=== PATIENT | female | born 1985 | race Caucasian/White ===

== ENCOUNTER 2017-10-19 11:01 | Outpatient (CLI) | payer OTHER ==
[~2017-10-19 11:01] MED LIST: FERR325C PO
[2017-10-19 12:07] LABS: BASOPHILS % (AUTO) 0.5 % (0-1); EOSINOPHILS # (AUTO) 0.2 X10'3 (0-0.9); EOSINOPHILS % (AUTO) 2.3 % (0-6); HEMATOCRIT 28.8 % (35.0-45.0); HEMOGLOBIN 9.4 g/dl (12.0-16.0); LYMPHOCYTES # (AUTO) 1.9 X10'3 (1.1-4.8); LYMPHOCYTES % (AUTO) 25.7 % (21-51); MEAN CORPUSCULAR HEMOGLOBIN 23.1 PG (27.0-31.0); MEAN CORPUSCULAR HGB CONC 32.6 % (33.0-36.5); MEAN PLATELET VOLUME 7.8 FL (7.4-10.4); MONOCYTES # (AUTO) 0.4 X10'3 (0-0.9); MONOCYTES % (AUTO) 5.8 % (2-12); NEUTROPHILS # (AUTO) 4.9 X10'3 (1.8-7.7); NEUTROPHILS % (AUTO) 65.7 % (42-75); PLATELET COUNT 323 X10'3 (140-440); RED BLOOD COUNT 4.05 X10'6 (4.20-5.60); RED CELL DISTRIBUTION WIDTH 15.7 % (11.5-14.5); WHITE BLOOD COUNT 7.5 X10'3 (4.5-11.0)
[2017-10-19 12:29] LABS: CLARITY,URINE Slightly Cloudy (Clear); COLOR,URINE Yellow (Yellow); GLUCOSE, URINE Negative (Neg); KETONES,URINE Negative (Neg); NITRITES, URINE Negative (Neg); OCCULT BLOOD,URINE Negative (Neg); PROTEIN,URINE Negative (Neg); UA COLLECTION TYPE CLN CATCH MIDSTREAM; UROBILINOGEN,URINE 0.2 E.U/dL (0.2-1.0)
[2017-10-19 12:38] LABS: ALANINE AMINOTRANSFERASE 19 U/L (12-78); ALBUMIN 3.4 G/DL (3.4-5.0); ALBUMIN/GLOBULIN RATIO 1.1 (1.1-1.5); ALKALINE PHOSPHATASE 91 IU/L (46-116); ANION GAP 7 (8-16); ASPARTATE AMINO TRANSFERASE 13 U/L (10-37); BILIRUBIN,TOTAL 0.4 MG/DL (0.1-1.0); BLOOD UREA NITROGEN 10 MG/DL (7-18); CHLORIDE 106 MMOL/L (99-107); CHOL/HDL RATIO 3.7 (0.00-4.99); CHOLESTEROL 193 MG/DL (0-200); CREATININE 0.77 MG/DL (0.40-0.90); GLUCOSE 91 MG/DL (70-104); HDL CHOLESTEROL 52 MG/DL (35-60); LDL CHOLESTEROL 117 MG/DL (50-100); POTASSIUM 4.1 MMOL/L (3.5-5.1); SODIUM 140 MMOL/L (135-145); SQUAMOUS EPITHELIAL CELL,UR MANY /LPF (FEW); TOTAL CARBON DIOXIDE 26.7 MMOL/L (24-32); TOTAL PROTEIN 6.6 G/DL (6.4-8.2); TRIGLYCERIDES 84 MG/DL (20-135); eGFR 86 ML/MIN
[2017-10-19 12:40] LABS: BACTERIA,URINE FEW /HPF (Neg); RBC,URINE 0-2 /HPF (0-2); WBC,URINE NONE SEEN /HPF (0-4)
[2017-10-19 12:43] LABS: LEUKOCYTE ESTERASE ,URINE NEGATIVE (Neg)
== END 2017-10-19 23:59 | disposition home or self-care (01) ==
LOC: LAB 11:01
PROVIDERS: ATTEND Family Medicine
DX: Z00.01 Encounter for general adult medical examination with abnormal findings (principal); R79.89 Other specified abnormal findings of blood chemistry
CPT/HCPCS: 36415; 80053; 80061; 81001; 82306; 83036; 84443; 84550; 85025

== ENCOUNTER 2017-12-17 05:26 | Day surgery (SDC) | payer OTHER ==
[2017-12-14 16:31] LABS: BASOPHILS % (AUTO) 0.3 % (0-1); EOSINOPHILS # (AUTO) 0.1 X10'3 (0-0.9); EOSINOPHILS % (AUTO) 1.3 % (0-6); LYMPHOCYTES # (AUTO) 2.2 X10'3 (1.1-4.8); LYMPHOCYTES % (AUTO) 27.4 % (21-51); MEAN CORPUSCULAR VOLUME 71.9 FL (78-98); MEAN PLATELET VOLUME 7.9 FL (7.4-10.4); MONOCYTES # (AUTO) 0.5 X10'3 (0-0.9); MONOCYTES % (AUTO) 6.4 % (2-12); NEUTROPHILS # (AUTO) 5.1 X10'3 (1.8-7.7); NEUTROPHILS % (AUTO) 64.6 % (42-75); PRE OP HEMATOCRIT 32.8 % (35.0-45.0); PRE OP PLATELET COUNT 337 X10'3 (140-440); RED BLOOD COUNT 4.56 X10'6 (4.20-5.60); RED CELL DISTRIBUTION WIDTH 19.5 % (11.5-14.5)
[2017-12-14 16:35] LABS: PRE OP HEMOGLOBIN 10.5 g/dL (12.0-16.0)
[2017-12-14 16:41] LABS: URINE HCG NEGATIVE (NEG)
[2017-12-14 16:49] LABS: ALBUMIN 3.5 G/DL (3.4-5.0); ALKALINE PHOSPHATASE 100 IU/L (46-116); BLOOD UREA NITROGEN 10 MG/DL (7-18); BUN/CREATININE RATIO 12.5 (6.6-38.0); CHLORIDE 105 MMOL/L (99-107); PRE OP ALT 18 U/L (30-65); PRE OP ANION GAP 7 (8-16); PRE OP AST 12 U/L (10-37); PRE OP BILIRUB, TOTAL 0.3 MG/DL (0.0-1.0); PRE OP GLUCOSE 91 MG/DL (70-104); PRE OP POTASSIUM 3.9 MMOL/L (3.4-5.1); PRE OP SODIUM 141 MMOL/L (135-145); TOTAL CARBON DIOXIDE 28.9 MMOL/L (24-32); eGFR 82 ML/MIN
[2017-12-14 17:03] LABS: COLOR,URINE YELLOW (Yellow); GLUCOSE, URINE NEGATIVE (Neg); KETONES,URINE NEGATIVE (Neg); LEUKOCYTE ESTERASE ,URINE NEGATIVE (Neg); NITRITES, URINE NEGATIVE (Neg); OCCULT BLOOD,URINE LARGE (Neg); PROTEIN,URINE NEGATIVE (Neg); UROBILINOGEN,URINE 0.2 E.U/dL (0.2-1.0)
[2017-12-14 17:05] LABS: CLARITY,URINE Slightly Cloudy (Clear); UA COLLECTION TYPE CLN CATCH MIDSTREAM
[2017-12-14 17:10] LABS: HYPOCHROMASIA 1+; PLATELET ESTIMATE NORMAL
[2017-12-14 17:11] LABS: ANISOCYTOSIS 2+; MICROCYTOSIS 1+
[2017-12-14 17:17] LABS: WBC,URINE 0-4 /HPF (0-4)
[2017-12-14 17:18] LABS: BACTERIA,URINE FEW /HPF (Neg); SQUAMOUS EPITHELIAL CELL,UR FEW /LPF (FEW)
[~2017-12-17] VITALS: Ht 172.7 cm; Wt 122.4 kg
[2017-12-17] VITALS (19 sets, daily range): BP systolic 120–142; BP diastolic 70–85
[~2017-12-17 05:26] MED LIST changes: -FERR325C PO; +NO HOME MEDS
[2017-12-17] MEDS ORDERED: famotidine 20mg tablet PO ONE (05:30)
[2017-12-17] MEDS ORDERED: ceFOXitin 2 GM ADDvantage bag 100 ML IV ONE (05:30)
[2017-12-17] MEDS ORDERED: LIDOcaine 1% (10mg/ml) 2ml vial ONE (05:56)
[2017-12-17] MEDS: ringers solution, lacted 1,000 ML IV SCH ×8 (06:08→19:23)
[2017-12-17] MEDS ORDERED: neomy sulf/polymyxin B sulf. GU irrigation 1ml amp IR ONE (06:42)
[2017-12-17] MEDS ORDERED: ROPIVAcaine 0.5% (5mg/ml) 30ml vial ONE ×2 (06:42→08:00)
[2017-12-17] MEDS ORDERED: vasoPRESSIN 20 units/ml inj. ONE (06:42)
[2017-12-17] MEDS ORDERED: clindamycin phosphate 40gm vag cream ONE (06:42)
[2017-12-17] MEDS ORDERED: epiNEPHrine 1 mg/ml inj ONE (06:42)
[2017-12-17] MEDS ORDERED: scopolamine 1.5mg patch.TD72 TD ONE (07:05)
[2017-12-17] MEDS ORDERED: fentaNYL /PF 50mcg/ml 5ml ampule ONE (07:16)
[2017-12-17] MEDS ORDERED: midazolam 2 mg/2 ml injection ONE (07:16)
[2017-12-17] MEDS ORDERED: neostigmine in sterile water inj 5 MG/5 ML syringe IJ ONE (07:22)
[2017-12-17] MEDS ORDERED: sevoflurane 250ml liquid IH ONE (07:22)
[2017-12-17] MEDS ORDERED: rocuronium 10mg/ml inj IV ONE ×2 (08:18→09:13)
[2017-12-17] MEDS ORDERED: metoprolol tartrate 1mg/ml inj IV ONE (08:31)
[2017-12-17] MEDS ORDERED: ringers solution, lacted 1,000 ML IV SCH (08:47)
[2017-12-17] MEDS ORDERED: neostigmine methylsulfate 1 MG/ML 10ml vial ONE (08:50)
[2017-12-17] MEDS ORDERED: morphine 4 MG/ML inj SYRINge IV PRN ×3 (08:50→18:50)
[2017-12-17] MEDS ORDERED: proCHLORperazine 10 MG/2 ml inj IV PRN (08:50)
[2017-12-17] MEDS ORDERED: ondansetron/PF 4mg/2ml inj IV PRN (08:50)
[2017-12-17] MEDS ORDERED: glycopyrrolate 0.2mg/ml inj ONE (08:50)
[2017-12-17] MEDS ORDERED: meperidine/PF 25mg/ml syringe IV PRN ×2 (08:50)
[2017-12-17] MEDS ORDERED: fentaNYL/PF 50MCG/1 ML 2ML syringe ONE (08:56)
[2017-12-17] MEDS ORDERED: propofol inj 20 ML IV ONE (09:13)
[2017-12-17] MEDS ORDERED: LIDOcaine 2% (20mg/ml) 5ml vial ONE (09:13)
[2017-12-17] MEDS ORDERED: dexamethasone sod phosphate 4mg/ml inj. ONE (09:14)
[2017-12-17] MEDS ORDERED: ondansetron/PF 4mg/2ml inj ONE (09:14)
[2017-12-17] MEDS ORDERED: BUPIVAcaine/PF 7.5mg/ml (0.75%) 10ml vial ONE (09:33)
[2017-12-17] MEDS ORDERED: temazepam 15mg capsule PO PRN (09:50)
[2017-12-17] MEDS ORDERED: mag hydrox/Alum hydrox/simeth 30ml oral suspension PO PRN (09:50)
[2017-12-17] MEDS ORDERED: LORazepam 2 mg/ml vial IV PRN (09:50)
[2017-12-17] MEDS ORDERED: normal saline 500ml IV soln 500 ML IV PRN (09:50)
[2017-12-17] MEDS ORDERED: HYDROcodone/acetaminophen 10/325mg tab PO PRN (09:50)
[2017-12-17] MEDS ORDERED: metoclopramide 5 mg/ml inj IV PRN (09:50)
[2017-12-17] MEDS ORDERED: diphenhydrAMINE 50 mg/ml inj IV PRN (09:50)
[2017-12-17 10:21] LABS: ISTAT ANION GAP 12 (8-12); ISTAT BUN 9 mg/dL (6-19); ISTAT CL 105 mmol/L (99-107); ISTAT CREATININE 0.6 mg/dL (0.6-1.1); ISTAT GLUCOSE 125 mg/dL (70-104); ISTAT HGB 10.5 g/dl (12.0-16.0); ISTAT Hct 31 %PCV (35-48); ISTAT IONIZED CALCIUM 1.23 mmol/L (1.03-1.32); ISTAT K 4.3 mmol/L (3.5-5.1); ISTAT NA 140 mmol/L (135-145); ISTAT TOTAL CO2 23 mmol/L (24-32); ISTAT eGFR > 90 ML/MIN
[2017-12-17] MEDS: meperidine/PF 25mg/ml syringe IV PRN ×2 (10:44→11:09)
[2017-12-17] MEDS ORDERED: acetaminophen 1,000mg/100ml IV 100 ML IV SCH (11:25)
[2017-12-17] MEDS: simethicone 80mg chew tab PO SCH ×3 (15:09→20:14)
[2017-12-17] MEDS: HYDROcodone/acetaminophen 10/325mg tab PO PRN ×2 (15:10→21:08)
[2017-12-17] MEDS: ondansetron/PF 4mg/2ml inj IV PRN ×2 (15:56→22:09)
[2017-12-17] MEDS: morphine 4 MG/ML inj SYRINge IV PRN (19:19)
[2017-12-17] MEDS: docusate sod 100mg capsule PO SCH (20:14)
[2017-12-18] VITALS: BP 118/57
[2017-12-18 04:00] VITALS: BP 125/64
[2017-12-18] MEDS: HYDROcodone/acetaminophen 10/325mg tab PO PRN (04:38)
[2017-12-18 04:55] LABS: BASOPHILS % (AUTO) 0.2 % (0-1); EOSINOPHILS % (AUTO) 0 % (0-6); HEMATOCRIT 27.6 % (35.0-45.0); HEMOGLOBIN 8.9 g/dl (12.0-16.0); LYMPHOCYTES # (AUTO) 1.7 X10'3 (1.1-4.8); LYMPHOCYTES % (AUTO) 10.6 % (21-51); MEAN CORPUSCULAR HEMOGLOBIN 23.5 PG (27.0-31.0); MEAN CORPUSCULAR HGB CONC 32.2 % (33.0-36.5); MEAN CORPUSCULAR VOLUME 72.7 FL (78-98); MEAN PLATELET VOLUME 8.2 FL (7.4-10.4); MONOCYTES % (AUTO) 6.1 % (2-12); NEUTROPHILS % (AUTO) 83.1 % (42-75); PLATELET COUNT 305 X10'3 (140-440); RED BLOOD COUNT 3.79 X10'6 (4.20-5.60); RED CELL DISTRIBUTION WIDTH 18.1 % (11.5-14.5); WHITE BLOOD COUNT 15.7 X10'3 (4.5-11.0)
[2017-12-18 05:14] LABS: ANION GAP 8 (8-16); BLOOD UREA NITROGEN 6 MG/DL (7-18); BUN/CREATININE RATIO 7.2 (6.6-38.0); CALCIUM 8.7 MG/DL (8.5-10.1); CHLORIDE 105 MMOL/L (99-107); CREATININE 0.83 MG/DL (0.40-0.90); GLUCOSE 116 MG/DL (70-104); POTASSIUM 3.9 MMOL/L (3.5-5.1); SODIUM 140 MMOL/L (135-145); TOTAL CARBON DIOXIDE 27.4 MMOL/L (24-32); eGFR 79 ML/MIN
[2017-12-18 05:41] LABS: TOTAL CELLS COUNTED 100
[2017-12-18 05:42] LABS: ANISOCYTOSIS 2+; HYPOCHROMASIA 1+; MICROCYTOSIS 1+; PLATELET ESTIMATE NORMAL; POLYCHROMASIA 1+
[2017-12-18 07:00] VITALS: BP 123/76
[2017-12-18] MEDS: simethicone 80mg chew tab PO SCH (07:39)
[2017-12-18] MEDS: morphine 4 MG/ML inj SYRINge IV PRN (07:39)
[2017-12-18] MEDS: docusate sod 100mg capsule PO SCH (07:39)
[2017-12-18] MEDS: ondansetron/PF 4mg/2ml inj IV PRN (08:03)
[2017-12-18] MEDS ORDERED: ceFOXitin 2 GM ADDvantage bag 100 ML IV ONE (09:45)
[2017-12-18] MEDS ORDERED: ONDA4TAB6 PO (09:49)
== END 2017-12-18 12:05 | disposition home or self-care (01) ==
LOC: PAS 05:26 → SUR 3N 11:47 → PAS 12-18 12:05
PROVIDERS: ATTEND Obstetrics & Gynecology Obstetrics
DX: N80.0 Endometriosis of uterus (principal); N73.6 Female pelvic peritoneal adhesions (postinfective); N93.8 Other specified abnormal uterine and vaginal bleeding; G47.33 Obstructive sleep apnea (adult) (pediatric); E66.01 Morbid (severe) obesity due to excess calories; Z90.49 Acquired absence of other specified parts of digestive tract; Z90.89 Acquired absence of other organs; Z79.1 Long term (current) use of non-steroidal anti-inflammatories (NSAID); Z79.891 Long term (current) use of opiate analgesic; Z91.040 Latex allergy status; Z68.41 Body mass index [BMI] 40.0-44.9, adult; Z98.890 Other specified postprocedural states; Z79.899 Other long term (current) drug therapy
CPT/HCPCS: 36415; 58552; 80047; 80048; 80053; 81001; 81025; 85025; 86885; 86900; 86901; 93005; A4315; J0131; J0171; J0694; J1100; J2001; J2175; J2250; J2270; J2405; J2704; J2710; J2765; J2795; J3010; J3490; J7030; J7120; A7000

== ENCOUNTER 2020-02-21 10:52 | Outpatient (CLI) | payer BC ==
[~2020-02-21 10:52] MED LIST changes: +ONDA4TAB6 PO
[2020-02-21 12:13] LABS: BASOPHILS % (AUTO) 0.5 % (0-1); EOSINOPHILS # (AUTO) 0.1 X10'3 (0-0.9); EOSINOPHILS % (AUTO) 1.5 % (0-6); HEMATOCRIT 38.7 % (35.0-45.0); LYMPHOCYTES # (AUTO) 2.4 X10'3 (1.1-4.8); LYMPHOCYTES % (AUTO) 32.4 % (21-51); MEAN CORPUSCULAR HEMOGLOBIN 28.8 PG (27.0-31.0); MEAN CORPUSCULAR HGB CONC 33.6 g/dL (33.0-36.5); MEAN CORPUSCULAR VOLUME 85.8 FL (78-98); MEAN PLATELET VOLUME 7.7 FL (7.4-10.4); MONOCYTES # (AUTO) 0.4 X10'3 (0-0.9); MONOCYTES % (AUTO) 5.7 % (2-12); NEUTROPHILS # (AUTO) 4.5 X10'3 (1.8-7.7); NEUTROPHILS % (AUTO) 59.9 % (42-75); PLATELET COUNT 252 X10'3 (140-440); RED CELL DISTRIBUTION WIDTH 13.3 % (11.5-14.5); WHITE BLOOD COUNT 7.5 X10'3 (4.5-11.0)
[2020-02-21 12:28] LABS: HEMOGLOBIN A1C 5.3 % (4.5-6.2)
[2020-02-21 12:33] LABS: ALANINE AMINOTRANSFERASE 30 U/L (12-78); ALBUMIN 3.7 G/DL (3.4-5.0); ALBUMIN/GLOBULIN RATIO 1.1 (1.1-1.5); ALKALINE PHOSPHATASE 91 IU/L (46-116); ANION GAP 6 (8-16); ASPARTATE AMINO TRANSFERASE 15 U/L (10-37); BILIRUBIN,TOTAL 0.5 MG/DL (0.1-1.0); BLOOD UREA NITROGEN 14 MG/DL (7-18); BUN/CREATININE RATIO 15.6 (6.6-38.0); CALCIUM 8.8 MG/DL (8.5-10.1); CHLORIDE 106 MMOL/L (99-107); CHOL/HDL RATIO 4.2 (0.00-4.99); CHOLESTEROL 205 MG/DL (0-200); GLUCOSE 88 MG/DL (70-104); HDL CHOLESTEROL 49 MG/DL (35-60); LDL CHOLESTEROL 144 MG/DL (50-100); SODIUM 140 MMOL/L (135-145); TOTAL CARBON DIOXIDE 27.9 MMOL/L (24-32); TRIGLYCERIDES 105 MG/DL (20-135); eGFR 71 ML/MIN
== END 2020-02-21 23:59 | disposition home or self-care (01) ==
LOC: LAB 10:52
PROVIDERS: ATTEND Obstetrics & Gynecology Obstetrics
DX: Z00.00 Encounter for general adult medical examination without abnormal findings (principal)
CPT/HCPCS: 36415; 80053; 80061; 82306; 83036; 84439; 84443; 85025